=== PATIENT | female | born 1930 | race Caucasian/White ===

== ENCOUNTER 2016-12-01 21:55 | Emergency (ER) | payer OTHER ==
[~2016-12-01 21:55] MED LIST: BEN25 PO; COLACE100 MG PO; DEC150 PO; ECO81 PO; FERROUS SULFAT325 M2 PO; HYD2.5C TOP; JANUVIA100 M1 PO; MAC100 PO; METFORMIN HCL850 MG PO; METOPROLOL TART25 M1 PO; OMEPRAZOLE D/R20 M1 PO; VITAMIN C500 M4 PO; ZESTRIL20 MG PO; ZOC10 PO
[2016-12-01 22:49] LABS: BASOPHIL % 0.4 % (0-2); PLATELET COUNT 268 x10^3mcL (130-400)
[2016-12-01 22:55] LABS: RED CELL DISTRIBUTION WIDTH 16.6 % (11.5-14.5)
[2016-12-01 23:00] LABS: CALCIUM 8.7 mg/dL (8.5-10.1); CARBON DIOXIDE 20.9 mmol/L (21-32); CHLORIDE SERUM 102 mmol/L (98-107); CREATININE SERUM 1.5 mg/dL (0.6-1.0); GLUCOSE SERUM 229 mg/dL (74-106); POTASSIUM SERUM 4.5 mmol/L (3.5-5.1); SODIUM SERUM 132 mmol/L (136-145)
[2016-12-01 23:05] LABS: ALBUMIN 3.4 g/dL (3.4-5.0); ALKALINE PHOSPHATASE 84 U/L (46-116); ALT/SGPT 9 U/L (14-59); AST/SGOT 14 U/L (15-37); BILIRUBIN TOTAL 0.21 mg/dL (0.20-1.00)
[2016-12-01 23:06] LABS: TOTAL PROTEIN, SERUM 8.5 g/dL (6.4-8.2)
[2016-12-01 23:24] LABS: UA SPECIFIC GRAVITY 1.015 (1.005-1.035); microscopic required? YES; urine erythrocyte TRACE (NEGATIVE)
[2016-12-02 01:16] VITALS: BP 126/67
== END 2016-12-02 01:18 | disposition home or self-care (01) ==
LOC: ED 21:55
PROVIDERS: Emergency Medicine
DX: N39.0 Urinary tract infection, site not specified (principal); E11.9 Type 2 diabetes mellitus without complications; I10 Essential (primary) hypertension; Z79.84 Long term (current) use of oral hypoglycemic drugs
CPT/HCPCS: 82962; 83880; J0696; J2405; J3010; J7030; J7040

== ENCOUNTER 2017-07-12 21:06 | Inpatient (IN) | payer OTHER ==
[~2017-07-12] VITALS: Ht 154.9 cm; Wt 51.4 kg
[~2017-07-12 21:06] MED LIST changes: -OMEPRAZOLE D/R20 M1 PO; +OMEPRAZOLE20 M4 PO
[2017-07-12 22:41] LABS: BASOPHIL % 0.2 % (0-2); PLATELET COUNT 334 x10^3mcL (130-400)
[2017-07-12 22:50] LABS: CALCIUM 8.3 mg/dL (8.5-10.1); CARBON DIOXIDE 20.5 mmol/L (21-32); CHLORIDE SERUM 103 mmol/L (98-107); CREATININE SERUM 1.7 mg/dL (0.6-1.0); GLUCOSE SERUM 170 mg/dL (74-106); POTASSIUM SERUM 4.7 mmol/L (3.5-5.1); SODIUM SERUM 133 mmol/L (136-145)
[2017-07-12 22:55] LABS: ALKALINE PHOSPHATASE 108 U/L (46-116); ALT/SGPT 13 U/L (14-59); AST/SGOT 20 U/L (15-37); BILIRUBIN TOTAL 0.2 mg/dL (0.20-1.00); TOTAL PROTEIN, SERUM 7.4 g/dL (6.4-8.2)
[2017-07-12 23:00] LABS: ALBUMIN 2.5 g/dL (3.4-5.0)
[2017-07-12 23:15] LABS: microscopic required? YES; urine erythrocyte TRACE (NEGATIVE)
[2017-07-13 01:27] VITALS: BP 97/67
[2017-07-13] MEDS ORDERED: HYDROCHLOROTH12.5 M2 PO (01:43)
[2017-07-13 02:07] LABS: FREE T4 0.98 ng/dL (0.76-1.46); FREE THYROXINE INDEX 2.4 ug/dL (1.4-4.5); T4(THYROXINE) 7.2 ug/dL (4.7-13.3)
[2017-07-13 02:50] LABS: MAGNESIUM 2.3 mg/dL (1.8-2.4); PHOSPHOROUS 4.2 mg/dL (2.5-4.9)
[2017-07-13 03:01] LABS: CHOLESTEROL/HDL RATIO 2.4; T3 TOTAL 0.98 ng/mL
[2017-07-13 06:23] LABS: BASOPHIL % 0.3 % (0-2); PLATELET COUNT 273 x10^3mcL (130-400)
[2017-07-13 06:27] LABS: CALCIUM 7.7 mg/dL (8.5-10.1); CARBON DIOXIDE 22.3 mmol/L (21-32); CHLORIDE SERUM 109 mmol/L (98-107); CREATININE SERUM 1.5 mg/dL (0.6-1.0); GLUCOSE SERUM 76 mg/dL (74-106); MAGNESIUM 2.1 mg/dL (1.8-2.4); PHOSPHOROUS 3.3 mg/dL (2.5-4.9); POTASSIUM SERUM 4.6 mmol/L (3.5-5.1); SODIUM SERUM 137 mmol/L (136-145)
[2017-07-13 06:32] LABS: RED CELL DISTRIBUTION WIDTH 18.4 % (11.5-14.5)
[2017-07-13 13:44] VITALS: BP 109/41
[2017-07-13] MEDS ORDERED: LISINOPRIL10 MG PO (16:30)
[2017-07-13 17:09] VITALS: BP 121/50
[2017-07-13 23:21] VITALS: BP 117/58
[2017-07-14 05:13] VITALS: BP 113/44
[2017-07-14 06:04] LABS: BASOPHIL % 0.3 % (0-2); PLATELET COUNT 246 x10^3mcL (130-400)
[2017-07-14 06:10] LABS: CALCIUM 7.5 mg/dL (8.5-10.1); CARBON DIOXIDE 18.2 mmol/L (21-32); CHLORIDE SERUM 113 mmol/L (98-107); CREATININE SERUM 1.2 mg/dL (0.6-1.0); GLUCOSE SERUM 78 mg/dL (74-106); POTASSIUM SERUM 4.1 mmol/L (3.5-5.1); SODIUM SERUM 140 mmol/L (136-145)
[2017-07-14 06:45] LABS: RED CELL DISTRIBUTION WIDTH 18.9 % (11.5-14.5)
[2017-07-14 09:19] VITALS: Ht 154.9 cm; Wt 51.4 kg
[2017-07-14 09:59] VITALS: BP 105/44
[2017-07-14 13:54] VITALS: BP 134/58
[2017-07-14 16:57] VITALS: BP 126/81
[2017-07-14 21:16] VITALS: BP 118/55
[2017-07-15 05:54] VITALS: BP 125/62
[2017-07-15 06:07] LABS: BASOPHIL % 0.2 % (0-2); PLATELET COUNT 278 x10^3mcL (130-400)
[2017-07-15 06:19] LABS: CALCIUM 8.1 mg/dL (8.5-10.1); CARBON DIOXIDE 20.8 mmol/L (21-32); CHLORIDE SERUM 109 mmol/L (98-107); CREATININE SERUM 1.2 mg/dL (0.6-1.0); GLUCOSE SERUM 88 mg/dL (74-106); SODIUM SERUM 139 mmol/L (136-145)
[2017-07-15 06:26] LABS: RED CELL DISTRIBUTION WIDTH 18.4 % (11.5-14.5)
[2017-07-15 10:00] VITALS: BP 117/51
[2017-07-15 13:32] VITALS: BP 106/50
[2017-07-15 17:38] VITALS: BP 114/52
[2017-07-15 20:55] VITALS: BP 110/51
[2017-07-16 05:35] VITALS: BP 111/51
[2017-07-16 06:57] LABS: CALCIUM 8.1 mg/dL (8.5-10.1); CARBON DIOXIDE 19.8 mmol/L (21-32); CHLORIDE SERUM 111 mmol/L (98-107); CREATININE SERUM 1.2 mg/dL (0.6-1.0); GLUCOSE SERUM 76 mg/dL (74-106); SODIUM SERUM 139 mmol/L (136-145)
[2017-07-16 07:05] LABS: BASOPHIL % 0.5 % (0-2); PLATELET COUNT 256 x10^3mcL (130-400)
[2017-07-16 07:16] LABS: RED CELL DISTRIBUTION WIDTH 18.7 % (11.5-14.5)
[2017-07-16 09:18] VITALS: BP 111/43
[2017-07-16 13:04] VITALS: BP 126/54
[2017-07-16] MEDS ORDERED: CIPRO500 MG PO (16:22)
[2017-07-16 17:35] VITALS: BP 126/54
[2017-07-16 17:49] VITALS: BP 134/57
== END 2017-07-16 18:30 | disposition home or self-care (01) | DRG 689 ==
LOC: ED 21:06 → DU 23:53
PROVIDERS: Emergency Medicine; Family Medicine Sports Medicine; Student in an Organized Health Care Education/Training Program; ADMIT Family Medicine
DX: N39.0 Urinary tract infection, site not specified (principal); G93.41 Metabolic encephalopathy; E43 Unspecified severe protein-calorie malnutrition; N17.0 Acute kidney failure with tubular necrosis; E22.2 Syndrome of inappropriate secretion of antidiuretic hormone; Q61.01 Congenital single renal cyst; R31.9 Hematuria, unspecified; N20.0 Calculus of kidney; K21.9 Gastro-esophageal reflux disease without esophagitis; K57.90 Diverticulosis of intestine, part unspecified, without perforation or abscess without bleeding; I10 Essential (primary) hypertension; E11.51 Type 2 diabetes mellitus with diabetic peripheral angiopathy without gangrene; D64.9 Anemia, unspecified; Z68.21 Body mass index [BMI] 21.0-21.9, adult; Z79.84 Long term (current) use of oral hypoglycemic drugs; Z87.442 Personal history of urinary calculi
CPT/HCPCS: 82962; 83880; 84439; 90658; 97110-GP; 97116-GP; 97530-GP; J0696; J7030; Q0092

== ENCOUNTER 2017-12-12 13:56 | Emergency (ER) | payer OTHER ==
[~2017-12-12] VITALS: Ht 154.9 cm; Wt 52.2 kg
[~2017-12-12 13:56] MED LIST changes: +CIPRO500 MG PO; +HYDROCHLOROTH12.5 M2 PO; +LISINOPRIL10 MG PO
[2017-12-12 14:07] VITALS: Ht 154.9 cm; Wt 52.2 kg
[2017-12-12 15:05] VITALS: BP 126/46
== END 2017-12-12 15:37 | disposition home or self-care (01) ==
LOC: ED 13:56
DX: S70.11XA Contusion of right thigh, initial encounter (principal); S00.03XA Contusion of scalp, initial encounter; I10 Essential (primary) hypertension; E11.9 Type 2 diabetes mellitus without complications; V98.8XXA Other specified transport accidents, initial encounter; Y93.89 Activity, other specified; Y92.89 Other specified places as the place of occurrence of the external cause; Y99.8 Other external cause status

== ENCOUNTER 2018-06-12 14:03 | Inpatient (IN) | payer OTHER ==
[~2018-06-12] VITALS: Ht 152.4 cm; Wt 55.0 kg
[2018-06-12 14:13] VITALS: Ht 152.4 cm; Wt 55.0 kg
[2018-06-12 14:59] LABS: BASOPHIL % 0.1 % (0-2); PLATELET COUNT 304 x10^3mcL (130-400)
[2018-06-12 15:04] LABS: RED CELL DISTRIBUTION WIDTH 15.8 % (11.5-14.5)
[2018-06-12 15:10] LABS: CALCIUM 8.3 mg/dL (8.5-10.1); CARBON DIOXIDE 21.7 mmol/L (21-32); CHLORIDE SERUM 104 mmol/L (98-107); CREATININE SERUM 1.5 mg/dL (0.6-1.0); POTASSIUM SERUM 4.1 mmol/L (3.5-5.1); SODIUM SERUM 134 mmol/L (136-145)
[2018-06-12 15:14] LABS: ALKALINE PHOSPHATASE 142 U/L (46-116); ALT/SGPT 22 U/L (14-59); AST/SGOT 30 U/L (15-37); BILIRUBIN TOTAL 0.2 mg/dL (0.20-1.00); TOTAL PROTEIN, SERUM 7.4 g/dL (6.4-8.2)
[2018-06-12 15:18] LABS: ALBUMIN 2.4 g/dL (3.4-5.0)
[2018-06-12 15:32] LABS: GLUCOSE SERUM 198 mg/dL (74-106)
[2018-06-12 15:47] LABS: microscopic required? YES; urine erythrocyte NEGATIVE (NEGATIVE)
[2018-06-12] MEDS ORDERED: MONTELUKAST SOD10 M1 PO (16:31)
[2018-06-12 18:27] VITALS: BP 113/47
[2018-06-12 20:37] VITALS: BP 115/59
[2018-06-13 05:19] VITALS: BP 120/41
[2018-06-13 06:18] LABS: BASOPHIL % 0.2 % (0-2); PLATELET COUNT 242 x10^3mcL (130-400)
[2018-06-13 06:21] LABS: CALCIUM 7.7 mg/dL (8.5-10.1); CARBON DIOXIDE 20.4 mmol/L (21-32); CHLORIDE SERUM 111 mmol/L (98-107); CREATININE SERUM 1.3 mg/dL (0.6-1.0); GLUCOSE SERUM 76 mg/dL (74-106); POTASSIUM SERUM 3.9 mmol/L (3.5-5.1); SODIUM SERUM 140 mmol/L (136-145)
[2018-06-13 06:51] LABS: RED CELL DISTRIBUTION WIDTH 15.5 % (11.5-14.5)
[2018-06-13 09:20] VITALS: BP 118/46
[2018-06-13 13:01] VITALS: BP 109/64
[2018-06-13 17:53] VITALS: BP 103/61
[2018-06-13 21:16] VITALS: BP 97/51
[2018-06-14 05:14] VITALS: BP 117/51
[2018-06-14 06:25] LABS: CALCIUM 7.7 mg/dL (8.5-10.1); CARBON DIOXIDE 21.9 mmol/L (21-32); CHLORIDE SERUM 111 mmol/L (98-107); CREATININE SERUM 1.2 mg/dL (0.6-1.0); GLUCOSE SERUM 65 mg/dL (74-106); MAGNESIUM 1.8 mg/dL (1.8-2.4); POTASSIUM SERUM 3.8 mmol/L (3.5-5.1); SODIUM SERUM 137 mmol/L (136-145)
[2018-06-14 07:15] LABS: BASOPHIL % 0.2 % (0-2); PLATELET COUNT 239 x10^3mcL (130-400)
[2018-06-14 07:17] LABS: RED CELL DISTRIBUTION WIDTH 15.5 % (11.5-14.5)
[2018-06-14 09:10] VITALS: BP 128/56
[2018-06-14] MEDS ORDERED: FORTAZ1 GM IV (15:35)
[2018-06-14 15:58] VITALS: BP 128/56
[2018-06-14 16:26] VITALS: BP 110/44
[2018-06-14 21:01] VITALS: BP 113/47
[2018-06-15 05:34] VITALS: BP 119/45
[2018-06-15 06:30] LABS: CALCIUM 7.8 mg/dL (8.5-10.1); CARBON DIOXIDE 19.1 mmol/L (21-32); CHLORIDE SERUM 112 mmol/L (98-107); CREATININE SERUM 1.1 mg/dL (0.6-1.0); GLUCOSE SERUM 71 mg/dL (74-106); MAGNESIUM 1.9 mg/dL (1.8-2.4); POTASSIUM SERUM 3.8 mmol/L (3.5-5.1); SODIUM SERUM 141 mmol/L (136-145)
[2018-06-15 06:50] LABS: BASOPHIL % 0.1 % (0-2); PLATELET COUNT 257 x10^3mcL (130-400)
[2018-06-15 07:19] LABS: RED CELL DISTRIBUTION WIDTH 15.5 % (11.5-14.5)
[2018-06-15 08:35] VITALS: BP 126/50
[2018-06-15 12:48] VITALS: BP 118/47
[2018-06-15 16:04] VITALS: BP 113/46
== END 2018-06-15 19:08 | DRG 640 ==
LOC: ED 14:03 → DU 16:53
PROVIDERS: Emergency Medicine; Internal Medicine Pulmonary Disease
DX: E86.0 Dehydration (principal); E43 Unspecified severe protein-calorie malnutrition; N39.0 Urinary tract infection, site not specified; N17.9 Acute kidney failure, unspecified; B96.5 Pseudomonas (aeruginosa) (mallei) (pseudomallei) as the cause of diseases classified elsewhere; B96.1 Klebsiella pneumoniae [K. pneumoniae] as the cause of diseases classified elsewhere; R54 Age-related physical debility; I10 Essential (primary) hypertension; E11.9 Type 2 diabetes mellitus without complications; Z90.5 Acquired absence of kidney; Z87.891 Personal history of nicotine dependence; Z79.84 Long term (current) use of oral hypoglycemic drugs
CPT/HCPCS: 82962; 85378; 97110-GP; 97116-GP; 97530-GP; J0696; J0713; J2405; J3490; J7030; J7050; J8597; Q0092; Q0163